=== PATIENT | male | born 1955 | race Two or more races ===

== ENCOUNTER 2016-04-28 14:31 | Emergency (ER) | payer MEDICAID ==
[~2016-04-28] VITALS: Ht 188 cm; Wt 104.3 kg
[2016-04-28 14:42] VITALS: BP 161/116
[2016-04-28 15:00] LABS: KETONES,URINE Negative (NEGATIVE); LEUKOCYTE ESTERASE ,URINE Negative (NEGATIVE); PH,URINE 6.5 (5.0-8.0)
[2016-04-28 15:02] LABS: ADD UA MICROSCOPIC YES
[2016-04-28 15:12] LABS: ADD URINE CULTURE NO; WBC,URINE 0-2 /HPF (0-3)
== END 2016-04-28 15:46 | disposition home or self-care (01) ==
LOC: ER 14:35
DX: R30.0 Dysuria (principal); R00.0 Tachycardia, unspecified
CPT/HCPCS: 81000-TC; A4606; Z7610

== ENCOUNTER 2017-01-05 17:41 | Inpatient (IN) | payer MEDICAID, OTHER ==
[~2017-01-05] VITALS: Ht 188 cm; Wt 90.7 kg
--- NOTE | 2017-01-05 17:52 | NUR ---
EKG IN PROGRESS
--- NOTE | 2017-01-05 17:52 | NUR ---
LAC #18 IV ACCESS. BLOOD SAMPLE COLLECTED SENT TO LAB
[2017-01-05 17:58] LABS: BASOPHILS # (AUTO) 0.1 /CMM (0.0-0.2); BASOPHILS % (AUTO) 0.6 % (0.0-2.0); EOSINOPHILS # (AUTO) 0.1 /CMM (0.0-0.7); EOSINOPHILS % (AUTO) 1.5 % (0.0-6.0); HEMATOCRIT 46 % (39-51); HEMOGLOBIN 15.7 g/dL (13.5-17.5); LYMPHOCYTES # (AUTO) 1.6 /CMM (0.8-4.8); LYMPHOCYTES % (AUTO) 17.9 % (20.0-44.0); MEAN CORPUSCULAR HEMOGLOBIN 31 PG (26.0-33.0); MEAN CORPUSCULAR HGB CONC 34 g/dl (31.0-36.0); MEAN CORPUSCULAR VOLUME 91 fL (80-96); MONOCYTES # (AUTO) 0.5 /CMM (0.1-1.30); MONOCYTES % (AUTO) 5.2 % (2.0-12.0); NEUTROPHILS # (AUTO) 6.6 /CMM (1.8-8.9); NEUTROPHILS % (AUTO) 74.8 % (43.0-81.0); PLATELET COUNT (AUTO) 336 /CMM (150-450); RDW COEFFICIENT OF VARIATION 11.8 (11.5-15.0); RED BLOOD CELL COUNT(AUTO) 5.06 MIL/uL (4.5-6.0); WHITE BLOOD COUNT (AUTO) 8.9 K/uL (4.3-11.0)
[2017-01-05] MEDS ORDERED: ISOS30TA6 PO (18:00)
[2017-01-05] MEDS ORDERED: SPIR25TA4 PO ×2 (18:00)
[2017-01-05] MEDS ORDERED: NITR0.4T6 SL (18:00)
[2017-01-05] MEDS ORDERED: RANI150T8 PO (18:00)
[2017-01-05] MEDS ORDERED: GEMF600T PO (18:00)
[2017-01-05] MEDS ORDERED: ASPI81TA2 PO (18:00)
[2017-01-05] MEDS ORDERED: LOSA50TA21 PO (18:00)
[2017-01-05] MEDS ORDERED: CARV6.252 PO (18:00)
[2017-01-05 18:09] LABS: CALCIUM, SERUM 8.8 mg/dL (8.5-10.1); CARBON DIOXIDE 22 mmol/L (21-32); CHLORIDE 106 mmol/L (98-107); CREATININE 1.2 mg/dL (0.6-1.3); GLUCOSE 95 mg/dL (74-106); POTASSIUM 4.1 mmol/L (3.5-5.1); SODIUM SERUM 138 mmol/L (136-145); UREA NITROGEN, BLOOD 25 mg/dL (7-18)
[2017-01-05 18:11] LABS: INR 1.05 (0.87-1.13); PROTHROMBIN TIME 10.9 SECS (9.5-12.7)
[2017-01-05 18:20] LABS: TROPONIN I < 0.017 ng/mL (0.00-0.056)
[2017-01-05 18:21] LABS: B-TYPE NATRIURETIC PEPTIDE 26 PG/ML (0-125)
--- NOTE | 2017-01-05 18:22 | NUR ---
PHYSICAL THERAPIST AIDE AT BEDSIDE
--- NOTE | 2017-01-05 18:29 | NUR ---
[facility]
[2017-01-05] MEDS ORDERED: ASPIRIN 325 MG TABLET PO ONE (18:30)
[2017-01-05] MEDS ORDERED: NITROGLYCERIN PACKET 1 GM PACKET TOP ONE (18:30)
[2017-01-05] MEDS ORDERED: NITROGLYCERIN PACKET 1 GM PACKET ONE (18:35)
[2017-01-05] MEDS ORDERED: ASPIRIN 325 MG TABLET ONE (18:35)
--- NOTE | 2017-01-05 20:32 | NUR ---
PT WILL GO TO 325.1 TELE BED
--- NOTE | 2017-01-05 20:35 | NUR ---
JUSTYNA EWING TOOK REPORT FOR TYALER
[2017-01-05] MEDS ORDERED: ACETAMINOPHEN 325 MG TABLET PO PRN (22:30)
[2017-01-05] MEDS ORDERED: TAMSULOSIN 0.4 MG CAP.SR.24H PO SCH ×2 (22:30→23:00)
[2017-01-05] MEDS ORDERED: ZOLPIDEM TARTRATE 10 MG TABLET PO PRN (22:30)
[2017-01-05] MEDS ORDERED: ATOR40TA PO (22:32)
[2017-01-05] MEDS ORDERED: TAMSULOSIN 0.4 MG CAP.SR.24H ONE (22:46)
[2017-01-05] MEDS ORDERED: ZOLPIDEM TARTRATE 10 MG TABLET ONE (22:46)
[2017-01-05] MEDS ORDERED: ATORVASTATIN 40 MG TABLET ONE (22:47)
[2017-01-05] MEDS ORDERED: ATORVASTATIN 40 MG TABLET PO SCH (23:00)
--- NOTE | 2017-01-05 23:00 | NUR ---
TELE/RN RANITIDINE 150 MG IS NOT AVAILABLE, PATIENT JUST TOOK HIS OWN RANITIDINE.
--- NOTE | 2017-01-05 23:03 | NUR ---
TELE/RN INFORMED DR. ZARAGOZA THAT RANITIDINE 150 MG IS NOT AVAILABLE, HE CHANGED IT TO PEPCID 20 MG PO DAILY. ORDER CARRIED OUT.
--- NOTE | 2017-01-05 23:20 | NUR ---
TELE/RN RECEIVED PATIENT AT 2143 FROM [facility]. PATIENT WAS AWAKE, ALERT, ORIENTED, COMFORTABLE, NO C/O PAIN, NO DISTRESS NOTED. MADE COMFORTABLE IN BED. ADMISSION DONE PER PROTOCOL. PLAN OF CARE DISCUSSED, VERBALIZED UNDERSTANDING AND AGREEMENT. PATIENT REFUSED SKIN CHECK. PER PATIENT HE HAS NO SKIN PROBLEMS. PATIENT HAS MEDICATION BOTTLES AT BEDSIDE BUT REFUSED TO HAVE THEM SENT TO PHARMACY PER PROTOCOL. PER PATIENT A FAMILY MEMBER WILL COME TOMORROW AND HE WILL SEND THE MED BOTTLES HOME. INSTRUCTED THE PATIENT NOT TO TAKE HIS HOME MEDS WITHOUT INFORMING THE NURSE, PATIENT VERBALIZED UNDERSTANDING. DR. ZARAGOZA CALLED AT AROUND 2155, ADMISSION ORDERS RECEIVED.
[2017-01-06] VITALS: BP 101/63
--- NOTE | 2017-01-06 | NUR ---
TELE/RN PATIENT IS SLEEPING AT THIS TIME, AROUSABLE, APPEAR COMFORTABLE, NO SIGNS OF DISTRESS NOTED, CALL LIGHT IN REACH. WILL CONTINUE TO MONITOR.
[2017-01-06 04:00] VITALS: BP 110/70
--- NOTE | 2017-01-06 06:18 | NUR ---
TELE/RN PATIENT IS AWAKE AT THIS TIME, PATIENT STATED, HE SLEPT GOOD, COMFORTABLE, NO C/O PAIN, ALL NEEDS ATTENDED AT THIS TIME, WILL CONTINUE TO MONITOR.
[2017-01-06 08:00] VITALS: BP 120/78
[2017-01-06] MEDS ORDERED: NITROGLYCERIN 0.4 MG/TAB BOTTLE SL PRN (08:00)
[2017-01-06] MEDS ORDERED: ACETAMINOPHEN ES 500 MG TABLET PO PRN (08:00)
--- NOTE | 2017-01-06 08:26 | NUR ---
RN OPENING NOTES RECEIVED PATIENT AWAKE RESTING COMFORTABLY IN BED. DENIES PAIN AT THIS TIME. PATIENT COMPLAINING OF CP 2-06/03. WILL CONTINUE TO MONITOR. DENIES SOB. NO ACUTE DISTRESS. RESPIRATIONS EVEN AND UNLABORED. PATIENT REFUSES TO GIVE UP OWN MEDICATIONS. MEDICATIONS REMAIN AT THE BEDSIDE. PATIENT REQUESTING FOR DR. ZARAGOZA TO BE CONTACTED TO SEE IF HE IS TO CONTINUE MEDICATIONS. WILL CONTACT DR. ZARAGOZA. IV ACCES LAC 18G PATENT AND INTACT. NO EVIDENCE OF INFILTRATION. BED LOCKED IN THE LOWEST POSITION AT THIS TIME. WILL CONTINUE TO MONITOR, ASSESS AND EDUCATE PATIENT THROUGHOUT SHIFT.
[2017-01-06] MEDS ORDERED: ISOSORBIDE MONONITRATE (30MG) 30 MG TAB.SR.24H PO SCH (09:00)
[2017-01-06] MEDS ORDERED: ASPIRIN 81 MG TAB.CHEW PO SCH (09:00)
[2017-01-06] MEDS ORDERED: FAMOTIDINE (20 MG) 20 MG TABLET PO SCH (09:00)
[2017-01-06] MEDS: SPIRONOLACTONE 25 MG TABLET PO SCH ×2 (09:10→17:00)
[2017-01-06] MEDS: CARVEDILOL 6.25 MG TABLET PO SCH ×2 (09:10→17:00)
[2017-01-06] MEDS: GEMFIBROZIL 600 MG TABLET PO SCH ×2 (09:10→17:00)
[2017-01-06] MEDS: LOSARTAN POTASSIUM 50 MG TABLET PO SCH ×2 (09:10→17:00)
--- NOTE | 2017-01-06 09:14 | NUR ---
RN NOTES PATIENT SEEN BY DR. DENSON. PATIENT TO BE TRANSFERRED TO ANOTHER FACILITY ([facility]) FOR ANGIOGRAM. PATIENT TO BE NPO EXCEPT MEDS PER DR. DENSON. WILL ANTICIPATE TRANSFER.
[2017-01-06] MEDS ORDERED: ENOXAPARIN SODIUM 100 MG/ML DISP.SYRIN SQ SCH (09:36)
[2017-01-06 10:09] LABS: CHOLESTEROL 112 mg/dL (<200); HDL CHOLESTEROL 34 mg/dL (40-60); LDL 63 mg/dL (0-99); TRIGLYCERIDES 68 mg/dL (30-150)
[2017-01-06 12:00] VITALS: BP 104/63
[2017-01-06 16:00] VITALS: BP 101/68
--- NOTE | 2017-01-06 16:05 | NUR ---
RN NOTES PATIENT TO BE TRANSFERRED TO [facility]. NOT DISCHARGED OUT OF SYSTEM. UNSURE IF PATIENT TO RETURN TO [facility].
--- NOTE | 2017-01-06 16:07 | NUR ---
RN JUDY GONSALEZ (TRANSFER) PATIENT UNSTABLE. CP NOTED 05/06. PATIENT BEING TRANSFERED TO [address] FOR C AND CONTINUATION OF CARE. PATIENT TO BE ADMITTED BY DR. URRUTIA AND TIMERS INSPECTOR ON THE CASE IS DR. ABRAHAM. CONTINUATION OF CARE BY GILDARDO HOWE. EXITCARE GIVEN AND PATIENT IS EDUCATED. ALL BELONGINGS REVIEWED. ALL NECESSARY DOCUMENTATION IS SIGNED AND PLACED IN CHART. PATIENT VERBALIZED UNDERSTANDING FOR THE NEED FOR TRANSFER. PATIENT PICKED UP BY [facility]. COMPACT ASSEMBLER [facility] ON THE CASE. PATIENT TO BE TRANSFERRED WITH IV LAC 18G. ALL NEEDS MET. ALL MEDS TO BE GIVEN APPROPRIATE. VS WNL. ALL PAPER WORK SENT WITH PATIENT TO [facility].
[2017-01-06 16:15] VITALS: BP 106/79
--- NOTE | 2017-01-06 17:00 | NUR ---
RN NON ADMIN NOTES PATIENT TRANSFERRED TO [facility].
== END 2017-01-06 21:15 | disposition short-term general hospital (02) | DRG 198 ==
LOC: ER 17:46 → TELE 20:58
PROVIDERS: ADMIT Internal Medicine; ATTEND Internal Medicine
DX: I25.110 Atherosclerotic heart disease of native coronary artery with unstable angina pectoris (principal); I10 Essential (primary) hypertension; E78.5 Hyperlipidemia, unspecified; N40.0 Benign prostatic hyperplasia without lower urinary tract symptoms; Z79.82 Long term (current) use of aspirin; E66.9 Obesity, unspecified; I45.10 Unspecified right bundle-branch block; Z68.25 Body mass index [BMI] 25.0-25.9, adult
CPT/HCPCS: 36415; 71010-TC; 80048-TC; 80061-TC; 83880; 84484-TC; 85025-TC; 85730-TC; 87081-TC; 93307-TC; A4606; J1650; Z7610